=== PATIENT | female | born 1980 | race Caucasian/White ===

== ENCOUNTER 2020-12-10 13:59 | Emergency (ER) | payer MEDICAID, SELFPAY ==
[2020-12-10 14:00] VITALS: BP 179/101; PULSE 133; RESP 22; TEMP 37.6; O2SAT 98; BMI 28.5
--- NOTE | 2020-12-10 14:24 | HMH.EDGENADL ---
ED Disposition Clinical Impression: Cellulitis of right foot, Hyperglycemia due to diabetes mellitus Disposition: Left Against Medical Advice Condition on Discharge: Serious Instructions: Cellulitis Prescriptions: Sulfamethoxazole/Trimethoprim [Bactrim DS tablet] 1 each PO BID 10 Days #20 tab Prescription Printed cephALEXin [cephALEXin 500mg capsule*] 500 mg PO QID 10 Days #40 cap Prescription Printed Referrals: PCP,No [Primary Care Provider] - - Critical Care Critical Care Time: No Attestation: On 12/10/20, the high probability of a clinically significant, sudden or life threatening deterioration of the following system(s) required my full and direct attention, intervention and personal management. The time I documented below is in addition to time spent performing reported procedures but includes the following listed in this critical care notation. Medical Decision Making - Medical Records Medical records reviewed: Yes: I reviewed the patient's medical records. - Garry Inquiry Pt receiving controlled substance: No Vital Signs: 12/10/20 14:00 12/10/20 14:30 12/10/20 15:30 Temperature 99.6 F Temperature Source Oral Pulse Rate [Radial] 133 H 125 H 90 Respiratory Rate 22 20 18 Blood Pressure [Right Radial Artery] 179/101 H 134/94 H 170/80 H Blood Pressure Mean [Right Radial Artery] 127 107 110 Blood Pressure Source [Right Radial Artery] Automatic Cuff Blood Pressure Position [Right Radial Artery] Sitting 02 Sat by Pulse Oximetry 98 98 98 Oxygen Delivery Method Room Air Room Air 12/10/20 16:00 12/10/20 16:30 Temperature Temperature Source Pulse Rate [Radial] 72 110 H Respiratory Rate 18 18 Blood Pressure [Right Radial Artery] 150/70 H 129/95 H Blood Pressure Mean [Right Radial Artery] 96 106 Blood Pressure Source [Right Radial Artery] Automatic Cuff Automatic Cuff Blood Pressure Position [Right Radial Artery] Supine Sitting 02 Sat by Pulse Oximetry 99 99 Oxygen Delivery Method Room Air Room Air - Lab Data Lab Results 12/10/20 14:20: VBG pH 7.38, VBG pCO2 40.6, VBG pO2 74.4 H, VBG HCO3 23.6, VBG Total CO2 24.9, VBG O2 Saturation 95.0 H, VBG Base Excess -1.4 12/10/20 14:40: WBC 18.0 H, RBC 4.79, Hgb 14.0, Hct 41.2, MCV 86.2, MCH 29.2, MCHC 33.9, RDW 13.4, Plt Count 538 H, MPV 7.8, Neut % (Auto) 78.5, Lymph % (Auto) 16.6, Co[place] % (Auto) 2.8, Eos % (Auto) 1.7, Baso % (Auto) 0.4, Neut # (Auto) 14.1 H, Lymph # (Auto) 3.0, [place] # (Auto) 0.5, Eos # (Auto) 0.3, Baso # (Auto) 0.1, Total Counted 100, Neutrophils % (Manual) 83 H, Lymphocytes % (Manual) 9 L, Atypical Lymphs % 3.0, Monocytes % (Manual) 4, Eosinophils % (Manual) 1, Platelet Estimate Moderate increase, RBC Morphology Normal 12/10/20 14:40: Sodium 133 L, Potassium 5.3 H, Chloride 99, Carbon Dioxide 23, Anion Gap 16.3 H, BUN 12, Creatinine 0.50 L, Estimated Creat Clear 197, Estimated GFR 137, Est GFR ( Amer) 166, Glucose 429 H*, Calcium 9.7, Total Bilirubin 1.4 H, AST 43 H, ALT 21, Alkaline Phosphatase 110, Total Protein 9.6 H, Albumin 4.5, Globulin 5.1 H, Albumin/Globulin Ratio 0.9 L 12/10/20 14:40: Lactate 1.2 12/10/20 14:40: Acetone Level None detected Result diagrams: 12/10/20 14:40 12/10/20 14:40 Orders (Tests/Meds): ED MEDICATIONS Generic Name Dose Route Start Last Admin Trade Name Freq PRN Reason Stop Dose Admin Ceftriaxone Sodium 1 gm/ 50 mls @ 100 mls/hr 12/10/20 14:30 12/10/20 15:36 Sodium Chloride IV 12/24/20 14:29 100 mls/hr Q24H KATERINE Administration Protocol Discontinued Medications Generic Name Dose Route Start Last Admin Trade Name Freq PRN Reason Stop Dose Admin Sodium Chloride 1,000 mls @ 999 mls/hr 12/10/20 14:30 12/10/20 15:04 Sod Chlor 0.9% 1000ml Bag IV 12/10/20 15:30 999 mls/hr .Q1H1M KATERINE Administration Trimethoprim/Sulfamethoxazole 1 each 12/10/20 14:20 12/10/20 15:35 Sulfa/Trimethoprim 1 Tablet PO 12/10/20 14:21 1 each ONCE ONE Administration Prot
--- NOTE | 2020-12-10 14:25 | XR_ITS ---
PROCEDURE: XR FOOT RT MIN 3V CLINICAL INDICATION: pain Right foot pain with redness and swelling x4 days COMPARISON: No exams were available for comparison FINDINGS: There is moderate 1st glandular hallux valgus angulation. There is deformity at the tarsal phalangeal articulation degenerative osteophytosis more likely an area of chronic degenerative change. There is chronic deformity from old the 3rd proximal phalangeal fracture. Irregular contour of the base of the 5th proximal phalanx is frequently seen in asymptomatic patients. There is severe dorsal soft tissue swelling. IMPRESSION: Severe soft tissue swelling multiple chronic findings. Dictated by: Laya Rivera MD 12/10/2020 15:21 Laya Rivera MD in [place] 12/10/2020 15:21
[2020-12-10 14:30] VITALS: BP 134/94; PULSE 125; RESP 20; O2SAT 98
[2020-12-10 14:51] LABS: Basophils # 0.1 K/mm3 (0-0.2); Basophils % 0.4 % (0.1-2.0); Eosinophils # 0.3 K/mm3 (0.0-0.4); Eosinophils % 1.7 % (0.1-12.0); Hematocrit 41.2 % (37.0-47.0); Lymphocytes % 16.6 % (10-50); Mean Corpuscular HGB Conc 33.9 g/dL (31.8-35.4); Mean Corpuscular Hemoglobin 29.2 pg (27.0-31.2); Mean Corpuscular Volume 86.2 fl (81-99); Mean Platelet Volume 7.8 fl (7.4-10.4); Monocytes # 0.5 K/mm3 (0.1-1.0); Monocytes % 2.8 % (1.7-9.3); Neutrophils # 14.1 K/mm3 (1.8-7.8); Neutrophils % 78.5 % (37.0-80.0); Platelet Count 538 K/mm3 (142-424); Red Blood Count 4.79 M/mm3 (4.20-5.40); Red Cell Distribution Width 13.4 % (11.5-17.5)
[2020-12-10 14:53] LABS: MANUAL DIFFERENTIAL MANUAL DIFFERENTIAL (MANUAL DIFF)
[2020-12-10 15:04] LABS: Chloride 99 mmol/L (98-107); Potassium 5.3 mmoL/L (3.5-5.1); Sodium 133 mmol/L (136-145)
[2020-12-10 15:07] LABS: Acetone, Serum (Rapid) None Detected (None Detect); Alkaline Phosphatase 110 U/L (38-126); Anion Gap 16.3 mEq/L (5-15); Bilirubin,Total 1.4 mg/dl (0.2-1.3); Blood Urea Nitrogen 12 mg/dl (7-17); Carbon Dioxide 23 mmol/L (22.0-30.0); Creatinine Clearance Estimated 197 mL/min (50-200); Estimated Glomerular Filt Rate 137 ml/min (>60); GFR (African American) 166 ML/MIN (>60)
[2020-12-10 15:08] LABS: Calcium 9.7 mg/dl (8.4-10.2); Lactic Acid 1.2 mmol/L (0.7-2.1)
[2020-12-10 15:09] LABS: Alanine Aminotransferase 21 U/L (12-78); Albumin Level 4.5 g/dl (3.5-5.0); Albumin/Globulin Ratio 0.9 (1.1-1.8); Aspartate Amino Transferase 43 U/L (14-36); Globulin 5.1 g/dL (1.3-3.2); Total Protein,Serum 9.6 g/dl (6.3-8.2)
[2020-12-10 15:17] LABS: VBG Base Excess -1.4 mmol/L (-2.4-2.3); VBG HCO3 23.6 mmol/L (23-30); VBG PCO2 40.6 mmol/L (35-51); VBG PH 7.38 mmol/L (7.31-7.41); VBG PO2 74.4 mmol/L (28-40); VBG Total CO2 24.9 mmol/L (23-27)
[2020-12-10 15:30] VITALS: BP 170/80; PULSE 90; RESP 18; O2SAT 98
[2020-12-10 15:36] LABS: Glucose 429 mg/dl (74-100)
[2020-12-10 15:43] LABS: Eosinophils % 1 % (0-3); Lymphocytes % 9 % (10-50); Monocytes % 4 % (2-9); Neutrophils % 83 % (42-76); Total Cells Counted 100
[2020-12-10 15:44] LABS: Platelet Estimate Moderate Increase; RBC Morphology Normal
[2020-12-10 16:00] VITALS: BP 150/70; PULSE 72; RESP 18; O2SAT 99
[2020-12-10 16:30] VITALS: BP 129/95; PULSE 110; RESP 18; O2SAT 99
[2020-12-10 16:59] VITALS: BP 114/72; PULSE 110; RESP 18; TEMP 36.6; O2SAT 98
== END 2020-12-10 17:01 | disposition left against medical advice (07) ==
PROVIDERS: Emergency Provider Emergency Medicine
DX: L03.115 Cellulitis of right lower limb (principal); E11.65 Type 2 diabetes mellitus with hyperglycemia
CPT/HCPCS: 73630; 80053; 82009; 82803; 83605; 85007; 85025; 87040; 96365; 96367; 99284

== ENCOUNTER 2021-07-13 14:41 | Emergency (ER) | payer MEDICAID, SELFPAY ==
[2021-07-13 15:21] VITALS: BP 176/113; PULSE 124; RESP 18; TEMP 37; O2SAT 98; BMI 28.5
--- NOTE | 2021-07-13 15:54 | HMH.EDGENADL ---
ED Disposition Clinical Impression: Hypertensive urgency, Tachycardia Allergic rhinitis Qualifiers: Allergic rhinitis trigger: other Allergic rhinitis seasonality: unspecified Qualified Code(s): J30.89 - Other allergic rhinitis Disposition: Home, Self-Care Condition on Discharge: Good Prescriptions: lisinopriL [Lisinopril] 20 mg PO DAILY #30 tab Prescription Printed Referrals: Chidi Mendoza MD [Primary Care Provider] - 3 days Time of Disposition: 16:00 - Critical Care Critical Care Time: No Attestation: On 07/13/21, the high probability of a clinically significant, sudden or life threatening deterioration of the following system(s) required my full and direct attention, intervention and personal management. The time I documented below is in addition to time spent performing reported procedures but includes the following listed in this critical care notation. Medical Decision Making - Medical Records Medical records reviewed: Yes: I reviewed the patient's medical records. - Garry Inquiry Pt receiving controlled substance: No Vital Signs: 07/13/21 15:21 Temperature 98.6 F Temperature Source Oral Pulse Rate [Left Radial] 124 H Respiratory Rate 18 Blood Pressure [Right Arm] 176/113 H Blood Pressure Mean [Right Arm] 134 Blood Pressure Source [Right Arm] Automatic Cuff Blood Pressure Position [Right Arm] Sitting 02 Sat by Pulse Oximetry 98 Oxygen Delivery Method Room Air Medical Decision Narrative: 41yo F evaluated with concern for sinus infection. Clinically the patient does not meet criteria for an acute bacterial sinusitis. Her HEENT exam is unremarkable. Patient is found to be hypertensive emergency and tachycardic. She has no chest pain or shortness of breath. Patient used to take antihypertensive medications, lisinopril 20mg daily. She has not taken his medications to beginning of the year. Has no local PCP. We will treat the patient's hypertensive urgency with clonidine in the emergency department and have agreed to provide a 30-day supply of lisinopril with understanding the patient is going to obtain a PCP in that time period. General Adult HPI - General Chief complaint: Upper Respiratory Infection Stated complaint: Possible sinus infection Time Seen by Provider: 07/13/21 15:54 Mode of Arrival: Ambulatory Limitations: No Limitations Description of Symptoms (Recalled from ER Triage Doc. by RN): c/o head and eyes swelling and pressure for a few days - History of Present Illness HPI narrative: 41yo F presents the emergency department concern for sinus infection. Patient reports she developed swelling around her eyes this morning. She has no pain around her eyes, her sinuses. She has mild runny nose without cough. No fever. Again, symptoms began today. She has no PCP locally and has not sought care outside the emergency department. She denies any chest pain, shortness of breath. - Related Data Previous Rx's Medication Instructions Recorded Sulfamethoxazole/Trimethoprim 1 each PO BID 10 Days #20 tab 12/10/20 [Bactrim DS tablet] cephALEXin [cephALEXin 500mg 500 mg PO QID 10 Days #40 cap 12/10/20 capsule*] lisinopriL [Lisinopril] 20 mg PO DAILY #30 tab 07/13/21 Allergies Allergy/AdvReac Type Severity Reaction Status Date / Time No Known Allergies Allergy Verified 12/10/20 14:17 [facility] History - Hepatitis A Screen Drug use history?: No High risk sexual behaviors?: No History of sexually transmitted infection?: No Currently employed?: No Childcare worker?: No Do you have indoor plumbing?: Yes Do you have electricity?: Yes Attestation statement:: This patient has been screened for Hepatitis A risk factors. I have reviewed the patient's past medical history: Yes Medical History: Reports:: Hypertension - Social History Smoking Status: Never smoker ROS Obtained: Yes All systems reviewed & no additional complaints - ENT Ears, Nose, Mouth, and Throat: R
[2021-07-13 16:40] VITALS: BP 186/124; PULSE 76; RESP 18; O2SAT 98
[2021-07-13 18:00] VITALS: BP 164/101; PULSE 76; RESP 20; TEMP 37; O2SAT 98
== END 2021-07-13 18:02 | disposition home or self-care (01) ==
PROVIDERS: Emergency Provider Family Medicine; PCP Emergency Medicine
DX: I16.0 Hypertensive urgency (principal); J30.89 Other allergic rhinitis
CPT/HCPCS: 99281

== ENCOUNTER → 2023-01-27 10:40 | Outpatient (CLI) | payer MEDICAID, SELFPAY ==
[2023-01-27 18:47] LABS: Basophils # 0.1 K/mm3 (0-0.2); Basophils % 0.4 % (0.1-2.0); Eosinophils # 0.2 K/mm3 (0.0-0.4); Eosinophils % 1.5 % (0.1-12.0); Hematocrit 46.1 % (37.0-47.0); Hemoglobin 15.5 g/dL (12.2-16.2); Lymphocytes # 2.3 K/mm3 (0.7-4.5); Lymphocytes % 19.9 % (10-50); Mean Corpuscular HGB Conc 33.7 g/dL (31.8-35.4); Mean Corpuscular Hemoglobin 29.3 pg (27.0-31.2); Mean Corpuscular Volume 86.9 fl (81-99); Mean Platelet Volume 8.7 fl (7.4-10.4); Monocytes # 0.4 K/mm3 (0.1-1.0); Monocytes % 3.7 % (1.7-9.3); Neutrophils # 8.5 K/mm3 (1.8-7.8); Neutrophils % 74.5 % (37.0-80.0); Platelet Count 505 K/mm3 (142-424); Red Cell Distribution Width 13.3 % (11.5-17.5); White Blood Count 11.4 K/mm3 (4.8-10.8)
[2023-01-27 19:01] LABS: Alanine Aminotransferase 28 U/L (12-78); Albumin Level 4.3 g/dl (3.5-5.0); Albumin/Globulin Ratio 1.2 (1.1-1.8); Alkaline Phosphatase 106 U/L (38-126); Aspartate Amino Transferase 25 U/L (14-36); Bilirubin,Total 0.7 mg/dl (0.2-1.3); Blood Urea Nitrogen 13 mg/dl (7-17); Calcium 8.6 mg/dl (8.4-10.2); Carbon Dioxide 19 mmol/L (22.0-30.0); Chloride 99 mmol/L (98-107); Cholesterol 251 mg/dl (140-200); Estimated Glomerular Filt Rate 245 ml/min (>60); GFR (African American) 297 ML/MIN (>60); Globulin 3.6 g/dL (1.3-3.2); HDL Cholesterol 28 mg/dl (40-60); Sodium 128 mmol/L (136-145); Total Protein,Serum 7.9 g/dl (6.3-8.2)
[2023-01-27 19:15] LABS: 25-OH Vitamin D, Total 13.7 ng/mL (30-100)
[2023-01-27 19:30] LABS: Thyroid Stimulating Hormone 1.47 uIU/mL (0.465-4.68)
[2023-01-27 20:51] LABS: Triglycerides 654 mg/dl (30-150)
[2023-01-27 20:53] LABS: Glucose 533 mg/dl (74-100)
[2023-01-27 22:06] LABS: Hemoglobin A1C > 14.0 % (4.0-6.0)
[2023-02-02 11:14] LABS: C-Peptide 3.3 ng/mL (1.1-4.4)
== END ==
PROVIDERS: PCP Nurse Practitioner Family; Visit Provider Nurse Practitioner Family
DX: I16.0 Hypertensive urgency (principal); E11.65 Type 2 diabetes mellitus with hyperglycemia; R53.83 Other fatigue; E55.9 Vitamin D deficiency, unspecified; Z79.84 Long term (current) use of oral hypoglycemic drugs
CPT/HCPCS: 80053; 80061; 82306; 83036; 84443; 84681; 85025

== ENCOUNTER 2024-11-13 15:02 | Outpatient (CLI) | payer MEDICAID, SELFPAY ==
[2024-11-13 17:47] LABS: Basophils % 0.4 % (0.1-2.0); Eosinophils # 0.3 K/mm3 (0.0-0.4); Eosinophils % 2.4 % (0.1-12.0); Hematocrit 41.3 % (37.0-47.0); Hemoglobin 14.4 g/dL (12.2-16.2); Lymphocytes % 26.7 % (10-50); Mean Corpuscular HGB Conc 34.9 g/dL (31.8-35.4); Mean Corpuscular Hemoglobin 28.8 pg (27.0-31.2); Mean Corpuscular Volume 82.6 fl (81-99); Mean Platelet Volume 9.3 fl (7.4-10.4); Monocytes # 0.5 K/mm3 (0.1-1.0); Monocytes % 4.4 % (1.7-9.3); Neutrophils # 7.3 K/mm3 (1.8-7.8); Neutrophils % 65.7 % (37.0-80.0); Platelet Count 473 K/mm3 (142-424); Red Cell Distribution Width 12.2 % (11.5-17.5); White Blood Count 11.1 K/mm3 (4.8-10.8)
[2024-11-13 18:44] LABS: Alanine Aminotransferase 24 U/L (12-78); Albumin Level 4.4 g/dl (3.5-5.0); Albumin/Globulin Ratio 1.3 (1.1-1.8); Alkaline Phosphatase 103 U/L (38-126); Anion Gap 19.6 mEq/L (5-15); Aspartate Amino Transferase 24 U/L (14-36); Blood Urea Nitrogen 16 mg/dl (7-17); Calcium 9.2 mg/dl (8.4-10.2); Carbon Dioxide 19 mmol/L (22.0-30.0); Chloride 100 mmol/L (98-107); Estimated Glomerular Filt Rate 135 ml/min (>60); GFR (African American) 163 ML/MIN (>60); Globulin 3.4 g/dL (1.3-3.2); Potassium 4.6 mmoL/L (3.5-5.1); Sodium 134 mmol/L (136-145); Total Protein,Serum 7.8 g/dl (6.3-8.2)
[2024-11-13 18:58] LABS: 25-OH Vitamin D, Total 17.6 ng/mL (30-100)
[2024-11-13 19:08] LABS: Glucose 416 mg/dl (74-100)
[2024-11-13 19:11] LABS: Thyroid Stimulating Hormone 1.52 uIU/mL (0.465-4.68)
[2024-11-13 20:27] LABS: Hemoglobin A1C 11.5 % (4.0-6.0)
[2024-11-14 10:27] LABS: Cholesterol 254 mg/dl (140-200); HDL Cholesterol 23 mg/dl (40-60)
[2024-11-14 10:36] LABS: Triglycerides 454 mg/dl (30-150)
[2024-11-14 10:38] LABS: Direct LDL Cholesterol 140.15 mg/dL (100-129)
== END 2024-11-13 23:59 | disposition home or self-care (01) ==
LOC: LAB.DROPOF 11-14 10:17
PROVIDERS: PCP Nurse Practitioner Family; Visit Provider Nurse Practitioner Family
DX: E11.65 Type 2 diabetes mellitus with hyperglycemia (principal); I16.0 Hypertensive urgency
CPT/HCPCS: 80053; 80061; 82306; 83036; 84443; 85025

== ENCOUNTER 2024-12-13 15:30 | Emergency (ER) | payer MEDICAID, SELFPAY ==
[2024-12-13] VITALS (7 sets, daily range): BP systolic 138–193; BP diastolic 96–109; PULSE 90–109; RESP 12–20; TEMP 36.9; O2SAT 97–99; BMI 26.3
--- NOTE | 2024-12-13 15:57 | PC.NURSE ---
Dr. Segal at bedside
--- NOTE | 2024-12-13 16:03 | ED_ITS ---
Discharge Plan Disposition Patient Disposition: Home, Self-Care Prescriptions Prescriptions: No Action (DME) blood-glucose meter [Blood Glucose Monitoring] Kit See Rx Instructions .ROUTE .MEDSUPPLY Qty: 1 0RF Rx Instructions: AC/HS (DME) Blood Glucose Test Strip See Rx Instructions .ROUTE .MEDSUPPLY Qty: 50 3RF Rx Instructions: AC/HS (DME) FreeStyle Lite Strips Strip See Rx Instructions .Route Qty: 100 3RF Rx Instructions: As directed or bid (DME) lancets [FreeStyle Lancets] 28 gauge misc See Rx Instructions .Route Qty: 100 3RF Rx Instructions: As directed or twice daily cholecalciferol (vitamin D3) 50 mcg (2,000 unit) capsule 50 mcg PO DAILY Qty: 30 4RF cholecalciferol (vitamin D3) 1,250 mcg (50,000 unit) capsule 1,250 mcg PO QWEEK Qty: 7 3RF aspirin [Adult Aspirin Regimen] 81 mg tablet,delayed release (DR/EC) 81 mg PO DAILY Qty: 30 2RF Ozempic 0.25 mg or 0.5 mg (2 mg/3 mL) pen injector 0.25 mg SQ WEEKLY Qty: 3 2RF Rx Instructions: for 4 weeks lisinopril 5 mg tablet 5 mg PO DAILY Qty: 90 2RF metformin 500 mg tablet See Rx Instructions .ROUTE .COMPLEX Qty: 60 0RF Dose Instruction: Take 1 tablet by mouth twice daily Rx Instructions: Take 1 tablet by mouth twice daily Referrals Follow up/Referrals: Roman Miles MD [Primary Care Provider] - See instructions Activity Restrictions/Add. Instructions Additional Instructions/Restrictions: Please follow-up with your primary care doctor regarding chronic management of your high blood sugar. No evidence of any metabolic emergency today. Clinical Impressions Clinical Impression: Hyperglycemia, Dehydration, moderate Instructions Patient Instructions: DI for Hyperglycemia -- Adult Print Language Print Language: Azeri Discharge ED Provider: Kirt Segal Adult HPI General Chief complaint: Hyper/Hypoglycemia Stated complaint: sent by phy- high blood sugar Time Seen by Provider: 12/13/24 15:56 Mode of Arrival: Ambulatory Source of Information: Patient Limitations: No Limitations Description of Symptoms (Recalled from ER Triage Doc. by RN): Pt was advised by PCP to come and be seen due BGL being elevated at 576. Pt states he bgl normally runs 200s. Pt states she is a T2 diabetic History of Present Illness HPI narrative: Patient is a 44-year-old with known poorly controlled diabetes she does not know what her last A1c was but states her blood sugar has been in the 400s lately presents today with a dry mouth and elevated blood sugar. She denies any other symptoms. She was establishing care with a new primary care doctor who sent her today to the emergency department given her hyperglycemia that was above detectable limits. She is on Ozempic and metformin and is not on insulin. Related Data Previous Rx's ?Medication ?Instructions ?Recorded blood sugar diagnostic (Blood #50 ea 02/02/23 Glucose Test strips) blood-glucose meter (Blood Glucose #1 ea 02/02/23 Monitoring kit) blood sugar diagnostic (FreeStyle #100 ea 03/28/23 Lite Strips) lancets 28 gauge (FreeStyle #100 ea 03/28/23 Lancets) aspirin 81 mg tablet,delayed 81 mg PO DAILY #30 tabs 11/14/24 release (Adult Aspirin Regimen) cholecalciferol (vitamin D3) 1,250 1,250 mcg PO QWEEK #7 caps 11/14/24 mcg (50,000 unit) capsule cholecalciferol (vitamin D3) 50 50 mcg PO DAILY #30 caps 11/14/24 mcg (2,000 unit) capsule semaglutide 0.25 mg or 0.5 mg (2 0.25 mg (0.368 mL) SQ WEEKLY DM #3 11/14/24 mg/3 mL) subcutaneous pen injector mL (Ozempic) lisinopril 5 mg tablet 5 mg PO DAILY #90 tabs 11/15/24 metformin 500 mg tablet See Rx Instructions .Route 11/15/24 .COMPLEX #60 tabs Allergies Allergy/AdvReac Type Severity Reaction Status Date / Time No Known Allergies Allergy Verified 12/13/24 18:10 [facility] Disclaimer: The information contained in this section may have been updated after the patient was seen, as this information can be updated by other users. Medical History Depression Diabetic neuropathy Social History Smoking Status: Never smoker alcohol intake: never current occupational status: disabled Travel in the last 8 weeks: None Have you lived/traveled outside [place] in past 30 days?: No Contact w/someone who lives/traveled outside US past 30 days?: No Exposure to someone with infectious disease in past 14 days?: No Do you have a fever (greater than 100.4 F or 38 C)?: No Have you tested positive for COVID-19: No Exposed to someone with COVID-19 in past 14 days?: No Do you have a sore throat?: No Do you have a cough?: No Do you have any weakness?: No Do you have any diarrhea?: No Are you experiencing any unusual bleeding?: No Do you have any muscle aches/pain?: No Do you have any abdominal pain?: No Are you experiencing loss of taste or smell?: No Other Medical History Have you received the Flu Vaccine for this season: No Have you received the Pneumonia Vaccine: No ROS Obtained: Yes All systems reviewed & no additional complaints except as documented Physical Exam General General appearance: alert and in no apparent distress ENT ENT exam: Present other (Dry mucous membranes) Respiratory Respiratory exam: Present normal lung sounds bilaterally Cardiovascular Cardiovascular exam: Present regular rate and normal rhythm Neurological Exam Neurological exam: Present alert, oriented X3 and other (Nonfocal) Medical Decision Making Medical Records Screening: Per USPSTF and CDC recommendations, given the prevalence of disease in our region, it is our hospital?s policy to screen for HIV and viral Hepatitis for all patients aged 18 and over and those with ongoing risk factors. Garry Inquiry Pt receiving controlled substance: No Vital Signs: 12/13/24 15:34 12/13/24 16:32 12/13/24 17:00 Temperature 98.5 F Temperature Source Oral Pulse Rate 94 H Pulse Rate [Right] 109 H Respiratory Rate 18 20 17 Blood Pressure 148/102 H 145/105 H Blood Pressure [Right Arm] 140/107 H Blood Pressure Mean [Right Arm] 118 Blood Pressure Source [Right Arm] Automatic Cuff Blood Pressure Position [Right Arm] Sitting 02 Sat by Pulse Oximetry 99 98 Oxygen Delivery Method Room Air Room Air 12/13/24 17:24 12/13/24 17:30 12/13/24 18:00 Temperature Temperature Source Pulse Rate 96 H 95 H 92 H Pulse Rate [Right] Respiratory Rate 14 12 13 Blood Pressure 193/109 H 141/96 H 138/101 H Blood Pressure [Right Arm] Blood Pressure Mean [Right Arm] Blood Pressure Source [Right Arm] Blood Pressure Position [Right Arm] 02 Sat by Pulse Oximetry 98 97 98 Oxygen Delivery Method Room Air Room Air Room Air Lab Data Lab results reviewed: Yes I reviewed the patient's lab results. Lab Results 12/13/24 15:53: WBC 10.8, RBC 4.99, Hgb 14.5, Hct 41.3, MCV 82.8, MCH 29.1, MCHC 35.1, RDW 12.7, Plt Count 422, MPV 9.1, Neut % (Auto) 67.9, Lymph % (Auto) 24.7, Frio % (Auto) 4.5, Eos % (Auto) 1.8, Baso % (Auto) 0.6, Neut # (Auto) 7.4, Lymph # (Auto) 2.7, Frio # (Auto) 0.5, Eos # (Auto) 0.2, Baso # (Auto) 0.1, Sodium 133 L, Potassium 4.2, Chloride 96 L, Carbon Dioxide 22, Anion Gap 19.2 H, BUN 17, C reatinine 0.50 L, Estimated Creat Clear 180, Estimated GFR 135, Est GFR ( Amer) 163, Glucose 612 H*, Calcium 9.1, Phosphorus 4.2, Magnesium 1.4 L, Total Bilirubin 0.5, AST 29, ALT 34, Alkaline Phosphatase 93, Total Protein 8.4 H, Albumin 4.5, Globulin 3.9 H, Albumin/Globulin Ratio 1.2 12/13/24 16:01: VBG pH 7.36, VBG pCO2 40.0, VBG pO2 66.4 H, VBG HCO3 22.1 L, VBG Total CO2 23.4, VBG O2 Saturation 92.0 H, VBG Base Excess -3.3 L, VBG Lactic Acid 3.9 H 12/13/24 17:22: Urine Color Yellow, Urine Appearance Clear, Urine pH 6.0, Ur Specific [place] 1.010, Urine Protein Negative, Urine Glucose (UA) 3+, Urine Ketones Negative, Urine Blood Negative, Urine Nitrate Negative, Urine Bilirubin Negative, Urine Urobilinogen 0.2, Ur Leukocyte Esterase Negative, Urine RBC None, Urine WBC None, Ur Squamous Epith Cells Occasional, Urine Bacteria Trace 12/13/24 15:53 12/13/24 15:53 Orders (Tests/Meds): ED MEDICATIONS Discontinued Medications Generic Name Dose Route Start Last Admin Trade Name Aidan PRN Reason Stop Dose Admin Lactated Ringer's 1,000 mls @ 999 mls/hr 12/13/24 16:15 12/13/24 16:04 Lactated Ringer's 1000 Ml Bag IV 12/13/24 17:15 999 mls/hr .Q1H1M KATERINE Administration Lactated Ringer's 1,000 mls @ 999 mls/hr 12/13/24 16:15 12/13/24 16:04 Lactated Ringer's 1000 Ml Bag IV 12/13/24 17:15 999 mls/hr .Q1H1M KATERINE Administration ORDERS Category Date Time Status CBC w/Auto Diff [Complete Blood Count Auto Diff] Stat Lab 12/13/24 15:53 Completed CMP [Comprehensive Metabolic Panel] Stat Lab 12/13/24 15:53 Completed Magnesium Stat Lab 12/13/24 15:53 Completed Phosphorous Stat Lab 12/13/24 15:53 Completed UA [Urinalysis and Microscopic] Stat Lab 12/13/24 17:22 Completed Venous Blood Gas Stat RT 12/13/24 16:01 Completed Medical Decision Narrative: Well-appearing 44-year-old female with a dry mucous membranes presents today with hyperglycemia. Clinically she is moderately dehydrated we will give her 2 L of lactated Ringer's. Unlikely that she has DKA or any significant complication from a metabolic standpoint other than hyperglycemia. IV fluids alone should lower her blood sugar. No indication for aggressive insulin administration in the ED at the moment. Basic blood work is pending will reassess shortly. Reassessment 634 after patient's IV fluid she feels much better glucose is now 415. This is measurable with her home glucometer. No evidence of DKA. She does have mild depression in her magnesium mild elevation in her anion gap consistent with dehydration and mild ketoacidosis. But her pH is normal. Overall patient is very well-appearing and improved on reassessment and needs to follow-up closely with her primary care doctor regarding management of her chronic hyperglycemia. Critical Care Critical Care Time Critical Care Time: Yes Attestation: On 12/13/24, the high probability of a clinically significant, sudden or life threatening deterioration of the following system(s) required my full and direct attention, intervention and personal management. The time I documented below is in addition to time spent performing reported procedures but includes the following listed in this critical care notation. Total Time Total Critical Care Time: 35
[2024-12-13] MEDS: LACTATED RINGERS 1000ML 1,000 ML 999 ML IV ×2 (16:04)
--- NOTE | 2024-12-13 16:04 | PC.NURSE ---
1604hrs Pt administered 2000mL's of lactated ringers as per the MAR
[2024-12-13 16:05] LABS: Basophils # 0.1 K/mm3 (0-0.2); Basophils % 0.6 % (0.1-2.0); Eosinophils # 0.2 K/mm3 (0.0-0.4); Eosinophils % 1.8 % (0.1-12.0); Hematocrit 41.3 % (37.0-47.0); Hemoglobin 14.5 g/dL (12.2-16.2); Lymphocytes # 2.7 K/mm3 (0.7-4.5); Lymphocytes % 24.7 % (10-50); Mean Corpuscular HGB Conc 35.1 g/dL (31.8-35.4); Mean Corpuscular Hemoglobin 29.1 pg (27.0-31.2); Mean Corpuscular Volume 82.8 fl (81-99); Mean Platelet Volume 9.1 fl (7.4-10.4); Monocytes # 0.5 K/mm3 (0.1-1.0); Monocytes % 4.5 % (1.7-9.3); Neutrophils # 7.4 K/mm3 (1.8-7.8); Neutrophils % 67.9 % (37.0-80.0); Platelet Count 422 K/mm3 (142-424); Red Blood Count 4.99 M/mm3 (4.20-5.40); Red Cell Distribution Width 12.7 % (11.5-17.5); White Blood Count 10.8 K/mm3 (4.8-10.8)
[2024-12-13 16:07] LABS: Albumin Level 4.5 g/dl (3.5-5.0); Chloride 96 mmol/L (98-107); Potassium 4.2 mmoL/L (3.5-5.1); Sodium 133 mmol/L (136-145)
[2024-12-13 16:10] LABS: Alanine Aminotransferase 34 U/L (12-78); Albumin/Globulin Ratio 1.2 (1.1-1.8); Alkaline Phosphatase 93 U/L (38-126); Anion Gap 19.2 mEq/L (5-15); Aspartate Amino Transferase 29 U/L (14-36); Bilirubin,Total 0.5 mg/dl (0.2-1.3); Blood Urea Nitrogen 17 mg/dl (7-17); Calcium 9.1 mg/dl (8.4-10.2); Carbon Dioxide 22 mmol/L (22.0-30.0); Creatinine Clearance Estimated 180 mL/min (50-200); Estimated Glomerular Filt Rate 135 ml/min (>60); GFR (African American) 163 ML/MIN (>60); Globulin 3.9 g/dL (1.3-3.2); Phosphorous 4.2 mg/dl (2.5-4.5); Total Protein,Serum 8.4 g/dl (6.3-8.2)
[2024-12-13 16:11] LABS: VBG Base Excess -3.3 mmol/L (-2.4-2.3); VBG HCO3 22.1 mmol/L (23-30); VBG PH 7.36 mmol/L (7.31-7.41); VBG PO2 66.4 mmol/L (28-40); VBG Total CO2 23.4 mmol/L (23-27)
[2024-12-13 16:11] LABS: Magnesium 1.4 mg/dl (1.6-2.3)
[2024-12-13 16:13] LABS: Glucose 612 mg/dl (74-100)
[2024-12-13 16:13] LABS: Lactate Venous 3.9 mmol/L (0.4-2.0)
[2024-12-13 17:25] LABS: Microscopic, Urine URINE MICROSCOPIC (MICROSCOPIC)
[2024-12-13 17:35] LABS: Appearance,Urine CLEAR (Clear); Bilirubin,Urine Negative (Negative); Blood, Urine Negative (Negative); Color,Urine YELLOW (Yellow); Glucose,Urine (UA) 3+ (Negative); Ketones,Urine Negative (Negative); Leukocyte Esterase,Urine Negative (Negative); Nitrate,Urine Negative (Negative); Protein,Urine Negative (Negative); Urobilinogen,Urine 0.2 EU/dl (0.2)
[2024-12-13 17:45] LABS: Bacteria,Urine Trace /lpf; Squamous Epithelial Cell,Urine Occasional #/hpf (0-5)
[2024-12-13 20:13] LABS: Reflex Lactic Add Lactic Reflex
== END 2024-12-13 18:50 | disposition home or self-care (01) ==
PROVIDERS: Emergency Provider Student in an Organized Health Care Education/Training Program; PCP Family Medicine
DX: E11.65 Type 2 diabetes mellitus with hyperglycemia (principal); E86.0 Dehydration; Z79.84 Long term (current) use of oral hypoglycemic drugs
CPT/HCPCS: 80053; 81001; 82803; 83735; 84100; 85025; 96360; 96361; 99291; J7120

== ENCOUNTER 2025-03-18 09:18 | Day surgery (SDC) | payer MEDICAID, SELFPAY ==
[2025-03-18 10:21] VITALS: BP 184/124; PULSE 102; RESP 18; TEMP 36.3; O2SAT 100; BMI 25.8
[2025-03-18] MEDS: TETRACAINE 0.5% OPTH SOL 15ML OP ×3 (10:50→11:00)
[2025-03-18] MEDS: PHENYLEPHRINE 2.5% OPHTH SOLN 2ML OP ×3 (10:50→11:00)
[2025-03-18] MEDS: CYCLOPENTOLATE 2% OPHTH SOLN 2ML BOTTLE OP ×3 (10:50→11:00)
[2025-03-18 11:06] LABS: HCG Qualitative, Serum Negative (Negative)
[2025-03-18 11:30] VITALS: BP 190/112; PULSE 91; RESP 18; TEMP 36.6; O2SAT 97
[2025-03-18] MEDS: MIDAZOLAM 2MG/2ML VIAL 1 MG IV (11:30)
[2025-03-18 11:35] VITALS: BP 175/105; PULSE 97; RESP 18; TEMP 36.6; O2SAT 100
[2025-03-18] MEDS: TIMOLOL 0.5% OPTH SOLN 5ML OP (11:39)
[2025-03-18] MEDS: TOBRAMYCIN/DEX OPTH SUSP 2.5ML OP (11:39)
[2025-03-18] MEDS: LIDOCAINE 1% PF 2ML AMPULE 2 ML IJ (11:39)
[2025-03-18 11:40] VITALS: BP 161/100; PULSE 93; RESP 18; TEMP 36.6; O2SAT 100
[2025-03-18 11:45] VITALS: BP 175/106; PULSE 96; RESP 18; TEMP 36.6; O2SAT 98
[2025-03-18 11:49] VITALS: BP 165/104; PULSE 95; RESP 16; TEMP 37.2; O2SAT 99
--- NOTE | 2025-03-18 12:55 | P.PCN_ITS ---
[facility] Procedure Note Date: 03/18/25 Time: 12:55 Procedure Note:: Preoperative Diagnosis: Cataract combined NS Cortical Complex [Right] Eye Postop diagnosis: same Operation: Microscopic phacoemulsification with intraocular lens implant [Right] Eye Specimen: None Blood Loss: None The patient was examined in the office with a complaint of poor vision in the [right] eye. The patient reports that this interferes with ADLs such as reading, watching TV and/or driving or the vision is like looking through a foggy haze and is very troubling. The patient was examined and found to have a visually significant cataract with best corrected vision of [20/80] by refraction and/or glare testing. Treatment options, risks and benefits were explained and the patient elected to have cataract surgery in an attempt to improve their vision. The patient had the eye anesthetized with topical tetracaine, the eye ways prepped and draped in the usual fashion for cataract surgery. A paracentesis and a temporal keratotomy were made. 0.2cc of 1% lidocaine PF was placed into the anterior chamber. And aqueous/viscoelastic exchange was done and a 360 degree capsulorexis was performed. Through hydrodissection and delineation with BSS on a cannula was done. The lens nucleus was phecoemulsified with CDE of [7.45]. Residual cortical material was removed using automated I&A The capsular bag was deepened with viscoelastica and a PCIOL was placed in the capsular bag with good centration and stability. Residual viscoelastic was removed using automated I&A. The keratotomy incision was hydrated with BSS on a cannula. The wound were checked and found to be water tight. IOP was checked digitally and adjusted as needed so as not to be too high. 1 drop of timolol 0.5%, ofloxacin, prednisolone acetate and ketorolac was instilled and eye shield taped over the eye. The patient was taken to recovery in good condition and will be seen postoperatively.
[2025-03-18 14:50] LABS: POC Glucose,Bedside 285 (70-110)
== END 2025-03-18 12:01 | disposition home or self-care (01) ==
PROVIDERS: PCP Family Medicine; Visit Provider Ophthalmology
PROC: (CPT 66984; principal; 2025-03-18 12:00)
DX: H25.811 Combined forms of age-related cataract, right eye (principal); E11.319 Type 2 diabetes mellitus with unspecified diabetic retinopathy without macular edema; H02.836 Dermatochalasis of left eye, unspecified eyelid; H02.833 Dermatochalasis of right eye, unspecified eyelid; I10 Essential (primary) hypertension; Z79.84 Long term (current) use of oral hypoglycemic drugs; Z79.85 Long-term (current) use of injectable non-insulin antidiabetic drugs; Z79.899 Other long term (current) drug therapy
CPT/HCPCS: 66984; 82962; 84703; J2250; V2632

== ENCOUNTER 2025-04-01 09:02 | Day surgery (SDC) | payer MEDICAID, SELFPAY ==
[2025-04-01] VITALS (8 sets, daily range): BP systolic 146–182; BP diastolic 91–110; PULSE 86–107; RESP 16–18; TEMP 36.2–36.6; O2SAT 96–99; BMI 27.3
[2025-04-01] MEDS: TETRACAINE 0.5% OPTH SOL 15ML OP ×3 (10:35→10:44)
[2025-04-01] MEDS: CYCLOPENTOLATE 2% OPHTH SOLN 2ML BOTTLE OP ×3 (10:35→10:45)
[2025-04-01] MEDS: PHENYLEPHRINE 2.5% OPHTH SOLN 2ML OP ×3 (10:35→10:45)
[2025-04-01 10:37] LABS: Urine Pregnancy, HCG Qual. Negative (Negative)
[2025-04-01 10:45] LABS: POC Glucose,Bedside 261 (70-110)
[2025-04-01] MEDS: MIDAZOLAM 2MG/2ML VIAL 1 MG IV (11:39)
[2025-04-01] MEDS: TIMOLOL 0.5% OPTH SOLN 5ML OP (11:49)
[2025-04-01] MEDS: TOBRAMYCIN/DEX OPTH SUSP 2.5ML OP (11:49)
[2025-04-01] MEDS: LIDOCAINE 1% PF 2ML AMPULE 2 ML IJ (11:50)
[2025-04-01] MEDS: SODIUM CHLORIDE 0.9% 10ML FLUSH SYRINGE 10 ML IV (11:50)
--- NOTE | 2025-04-01 13:26 | HMH.PROCNOTE ---
[facility] Procedure Note Date: 04/01/25 Time: 13:26 Procedure Note:: Preoperative Diagnosis: Cataract combined NS Cortical Complex [Left] Eye Postop diagnosis: same Operation: Microscopic phacoemulsification with intraocular lens implant [Left] Eye Specimen: None Blood Loss: None The patient was examined in the office with a complaint of poor vision in the [left] eye. The patient reports that this interferes with ADLs such as reading, watching TV and/or driving or the vision is like looking through a foggy haze and is very troubling. The patient was examined and found to have a visually significant cataract with best corrected vision of [20/400] by refraction and/or glare testing. Treatment options, risks and benefits were explained and the patient elected to have cataract surgery in an attempt to improve their vision. The patient had the eye anesthetized with topical tetracaine, the eye ways prepped and draped in the usual fashion for cataract surgery. A paracentesis and a temporal keratotomy were made. 0.2cc of 1% lidocaine PF was placed into the anterior chamber. And aqueous/viscoelastic exchange was done and a 360 degree capsulorexis was performed. Through hydrodissection and delineation with BSS on a cannula was done. The lens nucleus was phecoemulsified with CDE of [8.43]. Residual cortical material was removed using automated I&A. During I&A a rent developed in the posterior capsule. No vitreous loss. The capsular bag was deepened with viscoelastic and a 3 peice PCIOL was placed in the sulcus with good centration and stability. Residual viscoelastic was removed using automated I&A. The keratotomy incision was hydrated with BSS on a cannula. The wound were checked and found to be water tight. IOP was checked digitally and adjusted as needed so as not to be too high. 1 drop of timolol 0.5%, ofloxacin, prednisolone acetate and ketorolac was instilled and eye shield taped over the eye. The patient was taken to recovery in good condition and will be seen postoperatively.
== END 2025-04-01 12:16 | disposition home or self-care (01) ==
PROVIDERS: PCP Family Medicine; Visit Provider Ophthalmology
PROC: (CPT 66984; principal; 2025-04-01 12:00)
DX: E11.36 Type 2 diabetes mellitus with diabetic cataract (principal); H25.812 Combined forms of age-related cataract, left eye; E11.319 Type 2 diabetes mellitus with unspecified diabetic retinopathy without macular edema; Z97.3 Presence of spectacles and contact lenses; Z96.1 Presence of intraocular lens; E78.00 Pure hypercholesterolemia, unspecified; E11.40 Type 2 diabetes mellitus with diabetic neuropathy, unspecified; G47.30 Sleep apnea, unspecified; M19.90 Unspecified osteoarthritis, unspecified site; I10 Essential (primary) hypertension; Z98.41 Cataract extraction status, right eye; Z79.899 Other long term (current) drug therapy; Z79.84 Long term (current) use of oral hypoglycemic drugs; Z79.85 Long-term (current) use of injectable non-insulin antidiabetic drugs; Z59.41 Food insecurity; Z83.3 Family history of diabetes mellitus
CPT/HCPCS: 66984; 81025; 82962; J2250; V2632

== ENCOUNTER 2025-05-23 15:30 | Outpatient (CLI) | payer MEDICAID, SELFPAY ==
[2025-05-23 19:51] LABS: Hemoglobin A1C 8.7 % (4.0-6.0)
[2025-05-23 19:56] LABS: Alanine Aminotransferase 20 U/L (12-78); Albumin Level 4.5 g/dl (3.5-5.0); Albumin/Globulin Ratio 1.3 (1.1-1.8); Alkaline Phosphatase 95 U/L (38-126); Anion Gap 16.6 mEq/L (5-15); Aspartate Amino Transferase 19 U/L (14-36); Bilirubin,Total 0.4 mg/dl (0.2-1.3); Blood Urea Nitrogen 23 mg/dl (7-17); Calcium 9.6 mg/dl (8.4-10.2); Carbon Dioxide 24 mmol/L (22.0-30.0); Chloride 98 mmol/L (98-107); Cholesterol 223 mg/dl (140-200); Creatinine,Serum 0.60 mg/dl (0.52-1.04); Estimated Glomerular Filt Rate 109 ml/min (>60); GFR (African American) 131 ML/MIN (>60); Globulin 3.6 g/dL (1.3-3.2); Glucose 257 mg/dl (74-100); HDL Cholesterol 31 mg/dl (40-60); Potassium 4.6 mmoL/L (3.5-5.1); Sodium 134 mmol/L (136-145); Total Protein,Serum 8.1 g/dl (6.3-8.2); Triglycerides 346 mg/dl (30-150)
--- OUTSIDE RECORDS SUMMARY | 2025-05-24 10:03 | XMS_ITS | Referral Summary ---
Author Organization [facility] Address [address] [place] [id number] Care Team Providers Care Lithographed Plate Inspector Name Role Phone Jayshree Humphrey Registered Nurse Unavailable Unavailable Allergies No known active allergies Medications * This document contains information received from the source organization and may not represent a complete record from that organization. atorvastatin (LIPITOR) 40 MG TABS Take 1 tablet by mouth daily. 30 tablet 3 9 Active lisinopril (PRINIVIL,ZESTR IL) 40 MG TABS TAKE ONE TABLET BY MOUTH DAILY 90 tablet 9 Active Additional Information Patient taking differently: 40 mg Oral Daily, Reported on 11/03/2019 Blood Glucose Monitoring Suppl (ACCU-CHEK FREDIS PLUS) w/Device KIT PLEASE BLOOD SUGAR ONCE DAILY IN MORNING. 1 kit 9 Active SOFTCLIX LANCETS MISCIndications :Type 2 diabetes mellitus with foot ulcer, with long-term current use of insulin (HCC) TEST ONCE DAILY IN THE MORNING BEFORE BREAKFAST. 100 each 3 9 Active glucose blood (ACCU-CHEK FREDIS PLUS) STRPIndications :Type 2 diabetes mellitus with foot ulcer, with long-term current use of insulin (HCC) TEST ONCE DAILY IN THE MORNING BEFORE BREAKFAST. 100 strip 3 9 Active naproxen (NAPROSYN) 500 MG TABS Take 1 tablet by mouth 2 (two) times daily with meals. 30 tablet 9 Active insulin detemir (LEVEMIR) 100 UNIT/ML SOPN penIndications: Type 2 Diabetes Mellitus Use 30 Units daily. With needles #30 with 3 refills Indications: Type 2 Diabetes 15 mL 3 0 Active Insulin Pen Needle (PEN NEEDLES /16 ) 31G X 8 MM MISC USE TO INJECT INSULIN ONCE NIGHTLY 100 each 2 0 Active Active Problems Problem Noted Date Diagnosed Date Acute metabolic encephalopathy 11/04/2019 Hidradenitis suppurativa 11/04/2019 Acute respiratory failure with hypoxia 0 Cellulitis and abscess of neck 07/04/2019 Severe sepsis without septic shock 07/04/2019 Uncontrolled type 2 diabetes mellitus with hyper glycemia 07/04/2019 Hypertensive urgency 07/04/2019 Noncompliance with medication regimen 07/04/2019 Diabetic ulcer of left midfo ot associated with type 2 diabetes mellitus, with bone involvement without evidence of necrosis 10/03/2017 Diabetic foot ulcer with osteomyelitis 7 Generalized anxiety disorder Essential hypertension Overview (12/03/2013): Essential hypertension Mixed hyperlipidemia Overview (12/03/2013): Hyperlipidemia Depressive disorder, not elsewhere classified Allergic rhinitis Lumbago Type 2 diabetes mellitus wit h foot ulcer, unspecified halfway insulin use status Corns and callosities Right foot ulcer, with fat layer exposed Type 2 diabetes mellitus with polyneuropathy Resolved Problems Problem Noted Date Diagnosed Date Resolved Date Hypokalemia 06/06/2018 06/04/2019 Neutrophilic leukocytosis 10/01/2017 Cellulitis of left foot 09/30/201705/23 Headache 06/25/2015 Other malaise and fatigue Diabetes mellitus due to und erlying condition with complication 06/04/2019 Ulcer of toe of right foot, with fat layer exposed 06/04/2019 Ulcer of left foot, with fat layer exposed 06/04/2019 Non-pressure chronic ulcer o f other part of right foot with fat layer exposed 2018 Non-pressure chronic ulcer o f other part of left foot with fat layer exposed 019 Immunizations Immunization Administration Dates Next Due Pneumococcal Conjugate (PCV13) Prevnar 13 2014 Social History Tobacco Use Types Packs/Day Years Used Date Smoking Tobacco: Never Smokeless Tobacco: Never Alcohol Use Standard Drinks/Week Comments No 0 (1 standard drink = 0.6 oz pur e alcohol) PHQ-2 Answer Date Recorded PHQ-2 Score 0 11/08/2019 Comments No Sex and Gender Information Value Date Recorded Sex Assigned at Not on file Legal Sex Female 4:43 AM EDT Gender Identity Not on file Sexual Orientation Not on file Last Filed Vital Signs Vital Sign Reading Time Taken Comments Blood Pressure 155/90 11/08/2019 6:00 PM EST Pulse 106 11/08/2019 4:26 PM EST Temperature 36.9 C (98.4 F) 11/08/2019 4:26 PM EST Respiratory Rate 18 11/08/2019 4:26 PM EST Oxygen Saturation 100% 11/08/2019 4:30 PM EST Inhaled Oxygen Concentration - - Weight 82.6 kg (182 lb) 11/08/2019 4:26 PM EST Height 171.5 cm (5' 7.5 ) 11/03/2019 9:49 AM EST Body Mass Index 28.08 11/03/2019 9:49 AM EST Functional Status * Are you deaf or do you have serious difficulty hearing? Answer Date of Assessment Author No 11/04/2019 12:00 AM Regina Villegas, [place] Nurse * Are you blind or do you have serious difficulty seeing, even when wearing glasses? Answer Date of Assessment Author No 11/04/2019 12:00 AM Regina Villegas, [place] Nurse * Do you have serious difficulty walking or climbing stairs? (5 years old or older) Answer Date of Assessment Author No 11/04/2019 12:00 AM Regina Villegas, Registered Nurse * Do you have difficulty dressing or bathing? (5 years old or older) Answer Date of Assessment Author No 11/04/2019 12:00 AM Regina Villegas, Registered Nurse * Because of a physical, mental, or emotional condition, do you have difficulty doing errands alone such as visiting a doctor???s office or shopping? (15 years old or older) Answer Date of Assessment Author No 11/04/2019 12:00 AM Regina Villegas Registered Nurse Mental Status * Because of a physical, mental, or emotional condition, do you have serious difficulty concentrating, remembering, or making decisions? (5 years old or older) Answer Entry Date Author No 11/04/2019 12:00 AM Regina Villegas Registered Nurse Plan of Treatment Not on file Goals Goal Patient Goal Type Associated Problems Recent Progress Patient-Stated? Author Blood Pressure < 140/90 Blood Pressure 155/90(10/23 6:00 PM EST) Jaimie Duffy Diabetic Foot Exam once per year Diabetes On track(06/15 2:50 PM EDT) No Jaimie Hicks Patient had Diabetic Eye Exam in past 12 months Diabetes On track(06/15 2:50 PM EDT) No Jaimie Hicks Patient taking aspirin or other antiplatelet (if needed) Medications On track(06/15 2:50 PM EDT) No Jaimie Hicks LDL, CALCULATED < 100 Result Component 61(10/01/20 5:34 AM EST) No Jaimie Hicks CREATININE < 1.3 Result Component .64( 020 5:34 AM EST) No Jaimie Hicks Vaccines up to Date - Flu, Pneumonia Result Component On track(06/15 2:50 PM EDT) Jaimie Duffy HEMOGLOBIN A1C < 8.0 Result Component 9.9( 020 5:18 AM EST) No Jaimie Hicks MICROALB/CREAT RATIO < 30 Result Component 186( 019 10:35 AM EDT) Jaimie Duffy GLUCOSE < 100 Result Component 241( 020 5:34 AM EST) No Jaimie Hicks Exercising Regularly Self-Managemen t On track(06/15 2:50 PM EDT) Jaimie Duffy Patient has no barriers to completing goals Self-Managemen t On track(06/15 2:50 PM EDT) No Jaimie Hicks Patient increasing knowledge of chronic disease(s) Self-Managemen t On track(06/15 2:50 PM EDT) Jaimie Duffy Tobacco cessation (or no tobacco) Self-Managemen t On track(06/15 2:50 PM EDT) No Jaimie Hicks Patient working to improve diet Self-Managemen t On track(06/15 2:50 PM EDT) Jaimie Duffy Patient is monitoring Blood Pressure weekly Self-Managemen t On track(06/15 2:50 PM EDT) Jaimie Duffy Patient Monitors Blood Sugar daily (if needed) Self-Managemen t On track(06/15 2:50 PM EDT) No Jaimie Hicks Self Management Action Plan Self-Managemen t No Jayshree Humphrey, Registered Nurse Note: Surgery / Wound Care / Infection Self-Monitoring: Wound care orders, Check wound, Patient understands when to call the doctor Lifestyle: Do not share personal care items, Manage Diabetes, Drink plenty of water unless contraindicated Medications: Antibiotics as prescribed, Current med list Education: Inspect incision/wound, Redness, Foul smelling drainage, Wash hands, Pain, swelling, bleeding, Warmth, hardness around incision, Temperature 101 or higher, Dressing supplies Financial Barriers: Transportation Procedures Procedure Name Priority Date/Time Associated Diagnosis Comments CYTOLOGY ENERGY DERIVATIVES TRADER Routine 11/25/2015 2:38 PM EST Pap smear for cervical cancer screening from Last 3 Months or Most Recently Relevant to Health Maintenance Results * CYTOLOGY ENERGY DERIVATIVES TRADER (11/25/2015 2:38 PM EST) CYTOLOGY-ENERGY DERIVATIVES TRADER CYTOLOGY GYNECOLOGICAL REPORT Name: GEMMA COSTELLO EPI#: [id number] Case #: [id number] Procedure\Addenda HPV High Risk Date Ordered: 11/30/2015 Status: Signed Out Date Complete: 12/03/2015 By: CELESTE Rosenberg(ASCP) Date Reported: 12/03/2015 Interpretation NEGATIVE for one or more high risk HPV types. (Reference Range: Negative) The APTIMA HPV Assay is an in vitro nucleic acid amplification test for the qualitative detection of E6/E7 viral messenger RNA (mRNA) from 14 high-risk Human Papillomavirus (HPV) types (16,18,31,33,35,39, 45,51,52,56,58,59,6 6, and 68) in cervical specimens. The performance of this assay on T3000 processor post-processed specimens was verified by the [facility]. HPV testing performed at [facility], [address] [place] [id number]. Final Cytologic Diagnosis A. Cervical/Endocervic al thinprep pap: Adequacy: Satisfactory for evaluation, endocervical transformation zone component present. Partially obscuring blood present. Interpretation: Negative for intraepithelial lesion or malignancy. This specimen has been analyzed by the ThinPrep Imaging System ([employer] an automated imaging and review system, which assists the head of store operations and/or pathologist in evaluation of cells on Thinprep Pap tests. Electronically Signed Out By CELESTE Culver ([facility]) Source of Specimen(s) A: Cervical/Endocervic al thinprep pap Clinical History Menstrual History: Not stated Signed out at [facility], [address] [place] [id number] [facility] Non-Formatted Report [facility] 11/25/2015 2:38 PM EST 11/26/2015 11:22 AM EST Comment:CERVICAL/ENDOCERVICA L THINPREP PAP us Altagracia Bearden SENIOR GAME ADVISOR PATHOLOGY/CYTOLOGY ORDERAB LES Edited Result - Final [facility] [address] [place] [id number] from Last 3 Months or Most Recently Relevant to Health Maintenance Additional Health Concerns Infection Onset Date Last Indicated MRSA Comment:11/03/2019 Nasal swab + MRSA 11/03/2019 11/03/2019 Care Teams Lithographed Plate Inspector Relationship Specialty Start Date End Date Jayshree Humphrey, Registered Nurse Registered Nurse Complex Care Management 11/18/19
--- OUTSIDE RECORDS SUMMARY | 2025-05-24 10:03 | XMS_ITS | Encounter Summary ---
Author Organization [facility] Address [address] [place] [address] Phone Care Team Providers Care Machinery Rigger Name Role Phone Jesús Flowers MD Primary Care Provider [phone] Jayshree Humphrey Registered Nurse Unavailable Unavailable Encounter Details Date Type Department Care Team (Late st Contact Info) Description 07/17/2018 Collaborative Link Encounter [facility] [address] [place], [place] [id number] Flori Isaacs Registered Nurse Social History Tobacco Use Types Packs/Day Years Used Date Smoking Tobacco: Never Smokeless Tobacco: Never Alcohol Use Standard Drinks/Week Comments No 0 (1 standard drink = 0.6 oz pur e alcohol) Comments No Sex and Gender Information Value Date Recorded Sex Assigned at Not on file Legal Sex Female 4:43 AM EDT Gender Identity Not on file Sexual Orientation Not on file documented as of this encounter Functional Status * Are you deaf or do you have serious difficulty hearing? Answer Date of Assessment Author No 06/06/2018 12:43 PM EDT Leyla Lino Registered Nurse * Are you blind or do you have serious difficulty seeing, even when wearing glasses? Answer Date of Assessment Author No 06/06/2018 12:43 PM EDT Leyla Lino Registered Nurse * Do you have serious difficulty walking or climbing stairs? (5 years old or older) Answer Date of Assessment Author Yes 06/06/2018 12:43 PM EDT Leyla Lino Registered Nurse * Do you have difficulty dressing or bathing? (5 years old or older) Answer Date of Assessment Author No 06/06/2018 12:43 PM EDT Leyla Lino Registered Nurse * Because of a physical, mental, or emotional condition, do you have difficulty doing errands alone such as visiting a doctor???s office or shopping? (15 years old or older) Answer Date of Assessment Author No 06/06/2018 12:43 PM EDT Leyla Lino Registered Nurse documented as of this encounter Mental Status * Because of a physical, mental, or emotional condition, do you have serious difficulty concentrating, remembering, or making decisions? (5 years old or older) Answer Entry Date Author No 06/06/2018 12:43 PM EDT Leyla Lino Registered Nurse documented in this encounter Plan of Treatment Not on file documented as of this encounter Goals Goal Patient Goal Type Associated Problems Recent Progress Patient-Stated? Author Blood Pressure < 140/90 Blood Pressure 155/90(11/08 6:00 PM EST) No Jaimie Hicks Diabetic Foot Exam once per year Diabetes On track(2016 2:50 PM EDT) No Jaimie Hicks Patient had Diabetic Eye Exam in past 12 months Diabetes On track(2016 2:50 PM EDT) No Jaimie Hicks Patient taking aspirin or other antiplatelet (if needed) Medications On track(2016 2:50 PM EDT) No Jaimie Hicks LDL, CALCULATED < 100 Result Component 61( 7 5:34 AM EST) No Jaimie Hicks CREATININE < 1.3 Result Component .64(11/06/19 20 5:34 AM EST) No Jaimie Hicks Vaccines up to Date - Flu, Pneumonia Result Component On track(2016 2:50 PM EDT) No Jaimie Hicks HEMOGLOBIN A1C < 8.0 Result Component 9.9(11/04/19 20 5:18 AM EST) No Jaimie Hicks MICROALB/CREAT RATIO < 30 Result Component 186(03/08/20 10:35 AM EDT) No Jaimie Hicks GLUCOSE < 100 Result Component 241(11/06/19 20 5:34 AM EST) No Fabiola, Jaimie Exercising Regularly Self-Management On track(2016 2:50 PM EDT) No Jaimie Hicks Patient has no barriers to completing goals Self-Management On track(2016 2:50 PM EDT) No Jaimie Hicks Patient increasing knowledge of chronic disease(s) Self-Management On track(2016 2:50 PM EDT) No Jaimie Hicks Tobacco cessation (or no tobacco) Self-Management On track(2016 2:50 PM EDT) No Jaimie Hicks Patient working to improve diet Self-Management On track(2016 2:50 PM EDT) No Jaimie Hicks Patient is monitoring Blood Pressure weekly Self-Management On track(2016 2:50 PM EDT) No Jaimie Hicks Patient Monitors Blood Sugar daily (if needed) Self-Management On track(2016 2:50 PM EDT) No Jaimie Hicks documented as of this encounter Visit Diagnoses Not on filedocumented in this encounter Additional Health Concerns Infection Onset Date Last Indicated Resolved Time MRSA Comment:11/03/2019 Nasal swab + MRSA 11/03/2019 11/03/2019 documented as of this encounter Care Teams Machinery Rigger Relationship Specialty Start Date End Date Jesús Flowers MD PCP - General 12/20/07 01/22/23 Jayshree Humphrey, Registered Nurse Registered Nurse Complex Care Management 11/18/19 documented as of this encounter
--- OUTSIDE RECORDS SUMMARY | 2025-05-24 10:03 | XMS_ITS | Clinical Summary ---
Author Organization [facility] Address [address] [place] [id number] Care Team Providers Care Traveling Secretary Name Role Phone Jayshree Humphrey Registered Nurse [...] diabetes mellitus wit h foot ulcer, unspecified nursing home insulin use status Corns and callosities Right [...] Due Pneumococcal Conjugate (PCV13) Prevnar 13 2014 Family History Medical History Relation Name Comments Diabetes Maternal Grandfather Diabetes Maternal Grandmother Heart Disease Mother Other Other 1 HT DS Mother Other Other 2 DIABETES Sister High BP Paternal Aunt Heart Disease Paternal Uncle High BP Paternal Uncle Diabetes Sister 4 Relation Name Status Comments Brother 1 Alive Brother 2 Alive Father Alive Maternal Grandfather Maternal Grandmother Mother Alive Other 1 Other 2 Paternal Aunt Paternal Grandfather Paternal Grandmother Alive Paternal Uncle Sister 1 Alive Sister 2 Alive Sister 3 Alive Sister 4 Social History Tobacco Use Types Packs/Day Years [...] Mass Index 28.08 11/03/2019 9:49 AM EST Plan of Treatment Health Maintenance Due Date Last Done Comments DTap,Tdap,and Td (1 - Tdap) 1992 HPV (1 - 3-dose SCDM series) 2008 Pap Screening 11/25/2018 11/25/2015, 12/03/2013 (Postponed) Mammogram Screening 2021 Influenza Vaccine (#1) 2025 RSV Vaccine (60+ or ) (1 - 1-dose 75+ series) 2056 Pneumococcal 0-49 Aged Out 10/28/2014 No longer eligible based on patient's age to complete this topic Meningococcal conjugate richard nt 4 (MCV4) Aged Out No longer eligible b ased on patient's age to complete this topic RSV Immunization (<20 months) Aged Out No longer eligible based on patient's age to complete this topic Goals Goal Patient Goal Type Associated Problems Recent Progress Patient-Stated? Author Blood Pressure < 140/90 Blood Pressure 155/90(10/23 6:00 PM EST) No Jaimie Hicks Diabetic [...] Result Component On track(06/15 2:50 PM EDT) No Jaimie Hicks HEMOGLOBIN A1C < 8.0 Result Component 9.9( 020 5:18 AM EST) No Jaimie Hicks MICROALB/CREAT RATIO < 30 Result Component 186( 019 10:35 AM EDT) Jaimie Dfufy GLUCOSE < 100 Result Component 241( 020 5:34 AM EST) Jaimie Duffy Exercising Regularly Self-Managemen t On track(06/15 2:50 [...] Name Priority Date/Time Associated Diagnosis Comments CYTOLOGY PARTS REPRESENTATIVE Routine 11/25/2015 2:38 PM EST Pap smear for cervical cancer screening from Last 3 Months or Most Recently Relevant to Health Maintenance Results * CYTOLOGY PARTS REPRESENTATIVE (11/25/2015 2:38 PM EST) CYTOLOGY-PARTS REPRESENTATIVE CYTOLOGY GYNECOLOGICAL REPORT Name: GEMMA COSTELLO EPI#: [id number] Case #: [id number] Procedure\Addenda HPV High Risk Date Ordered: 11/30/2015 [...] processor post-processed specimens was verified by the [facility]. HPV testing performed at [facility], [address] [place], [place] [id number]. Final Cytologic Diagnosis A. Cervical/Endocervic al thinprep pap: Adequacy: Satisfactory for evaluation, endocervical transformation zone component present. Partially obscuring blood present. Interpretation: Negative for intraepithelial lesion or malignancy. This specimen has been analyzed by the ThinPrep Imaging System ([employer] an automated imaging and review system, which assists the petroleum inspector and/or pathologist in evaluation of cells on Thinprep Pap tests. Electronically Signed Out By CELESTE Culver (ASCP) Source of Specimen(s) A: Cervical/Endocervic al thinprep pap Clinical History Menstrual History: Not stated Signed out at [facility], [address] [place], [place] [id number] [facility] Non-Formatted Report [facility] 11/25/2015 2:38 PM EST 11/26/2015 11:22 AM EST Comment:CERVICAL/ENDOCERVICA L THINPREP PAP us Altagracia Bearden COLLECTION COORDINATOR PATHOLOGY/CYTOLOGY ORDERAB LES Edited Result - Final [facility] [address] [place] [phone] from Last 3 Months or Most Recently Relevant to Health Maintenance Additional Health Concerns Infection Onset Date Last Indicated MRSA Comment:11/03/2019 Nasal swab + MRSA 11/03/2019 11/03/2019 Advance Directives * Full Code (Latest Code Status on File) Date Activated Date Inactivated Comments 11/03/2019 3:33 PM 11/06/2019 7:34 PM * Full Code Date Activated Date Inactivated Comments 07/04/2019 10:55 AM 07/05/2019 6:16 PM * Full Code Date Activated Date Inactivated Comments 06/06/2018 5:56 PM 06/11/2018 10:02 PM * Full Code Date Activated Date Inactivated Comments 09/30/2017 7:02 PM 10/03/2017 5:10 PM * Full Code Date Activated Date Inactivated Comments 09/30/2017 5:38 PM 09/30/2017 7:02 PM Care Teams Traveling Secretary Relationship Specialty Start Date End Date Jayshree Humphrey, Registered Nurse Registered Nurse Complex Care Management 11/18/19
== END 2025-05-23 23:59 | disposition home or self-care (01) ==
LOC: LAB.DROPOF 05-24 10:01
PROVIDERS: PCP Family Medicine; Visit Provider Family Medicine
DX: E11.9 Type 2 diabetes mellitus without complications (principal)
CPT/HCPCS: 80053; 80061; 83036